=== PATIENT | female | born 1980 | race Caucasian/White ===

== ENCOUNTER 2021-09-24 00:37 | Emergency (ER) | payer OTHER, SELFPAY ==
[2021-09-24 00:42] VITALS: BP 124/87; PULSE 89; RESP 18; TEMP 36.7; O2SAT 98
--- NOTE | 2021-09-24 00:45 | DI.CT_ITS ---
Exam(s) CT HEAD CERV SPINE FACIAL WO EXAM: CT HEAD CERV SPINE FACIAL WO CLINICAL HISTORY: hit head on rock, pain in head, left cheek. etoh+. TECHNIQUE: Imaging Protocol: Axial computed tomography images with coronal and sagittal reformatted images were created and reviewed COMPARISON: No exams were available for comparison FINDINGS: CT BRAIN: There are no skull fractures nor fluid in the visualized paranasal sinuses. There is no evidence of intracranial hemorrhage, mass effect, or shift of midline structures. There are no extra-axial fluid collections. The ventricles are not enlarged or shifted and there is no blo od within the ventricular system nor within the basal cisterns. CT MAXILLOFACIAL BONES: There is no evidence of facial fractures nor fluid in the visualized paranasal sinuses. there is no evidence of orbital blowout fracture. CT CERVICAL SPINE: There is no evidence of fracture nor listhesis. No significant prevertebral soft tissue swelling. N o facet malalignment evident. No significant osseous lesions evident. Chronic-type disc space narrowing at C5-6 level noted. Bilateral small Luschka joint osteophytes at this level noted. There is abnormal straightening of the cervical curvature IMPRESSION: No acute intracranial findings on this noninfused CT scan of the brain. No evidence of facial nor orbital blowout fractures. No evidence of cervical spine fracture, malalignment, nor acute compromise of the cervical spinal can al. RADIATION DOSE DELIVERED: 1,910.13mGy.cm Total DLP DATA REPOSITORY: All CT scans at this facility are submitted to the National Radiology Data Registry (NRDR) Dose Index Registry (DIR) with the [employer] (ACR). RADIATION OPTIMIZATION: All CT scans at this facility use at least one of these dose optimization te chniques: automated exposure control; mA and/or kV adjustment per patient size (includes targeted exa ms where dose is matched to clinical indication); or iterative reconstruction.
--- NOTE | 2021-09-24 00:51 | ED.GENADUL_ITS ---
Discharge Plan Disposition Patient Disposition: HOME Condition: Stable Discharge Details Clinical Impression: Face lacerations, Blunt head trauma ED Provider: Barrett Garrido Home Meds and New Rx's Prescriptions: Continued cyclobenzaprine 10 mg tablet 1 tab PO 1XD Label Comments: TAKE 1 TABLET BY MOUTH 3 (THREE) TIMES A DAY IF NEEDED FOR MUSCLE SPASMS FOR UP TO 3 DAYS. lamotrigine 150 mg tablet 1 tab PO 1XD Label Comments: TAKE 2 TABLETS BY MOUTH AT BEDTIME ibuprofen 800 mg tablet 1 tab PO 1XD Label Comments: TAKE 1 TABLET (800 MG) BY ORAL ROUTE 3 TIMES PER NEEDED FOR PAIN dextroamphetamine-amphetamine 10 mg tablet 1 tab PO 1XD Label Comments: TAKE ONE TAB AT 3PM ORALLY hydroxyzine HCl 50 mg tablet 1 tab PO 1XD Label Comments: TAKE 2 TABLETS (100 MG) BY MOUTH AT BEDTIME doxycycline monohydrate 100 mg capsule 1 cap PO 1XD Label Comments: TAKE 1 CAPSULE ORALLY 2 TIMES A DAY FOR 10DAYS WITH AT LEAST 8OZ OF WATER DON'T LIE DOWN FOR 30 MIN cephalexin 500 mg capsule 1 cap PO 1XD Label Comments: TAKE 1 CAPSULE BY MOUTH FOUR TIMES A DAY FOR 10 DAYS cephalexin 500 mg capsule 1 mg PO 1XD Label Comments: TAKE 1 CAPSULE BY MOUTH FOUR TIMES A DAY FOR 10 DAYS dextroamphetamine-amphetamine [Adderall XR] 30 mg capsule,extended release 24hr 1 cap PO 1XD Label Comments: TAKE 1 CAPSULE BY MOUTH EVERY DAY IN THE MORNING ondansetron 4 mg tablet,disintegrating 1 tab PO 1XD Label Comments: TAKE 1 TABLET BY MOUTH EVERY 8 HOURS IF NEEDED FOR NAUSEA OR VOMITING FOR UP TO 7 DAYS. oxycodone 5 mg tablet 1 tab PO 1XD Label Comments: TAKE 0.5-1 TAB BY MOUTH EVERY 6 HRS PAIN. PATIENT MAY REQUEST A LESSER QUANTITY OR PARTIAL FILL. Rexulti 2 mg tablet 1 tab PO 1XD Label Comments: TAKE 1 TABLET BY MOUTH EVERY DAY Discharge Instructions Instructions: Facial Laceration (ED) Additional Instructions: You should have the sutures removed in approximately 10 days if you develop redness spreading from the wound, yellow/white discharge or severe worsening pain return to the emergency department Medical Decision Making 40 yo female who denies chronic medical problems comes in with forehead lacer ation. She states she was carrying her dog down stairs and tripped and landed hitting her head on a rock. Denies loc and denies preceding symptoms such as chest pain, dyspnea, lightheadeness. She arrives stable, caox4 but does admit to drinking wine and is mildly intoxicated on exam with intermittent slurring of words, no focal deficits on exam. She has a 4cm c shaped laceration superior to the left eyebrow. no scalp hematoma, full rom of the mandible but states she has pain over the left zygomatic arch as well without palpable or visible deformity. No c spine tenderness, chest back or abdomen tenderness and no pain in the extremities. Given she has alcohol on board and her lac, facial pain will obtain ct head and facial bones and given she has etoh on board can't exclude c spine injury, will obtain ct c spine as well. imaging unremarkable, she is stable. Closed the wound with 6 sutures. Discussed that given size of wound will likely have a scar. She lives on [facility] and will see pcp for f/u for suture removal and will consider seeing plastics. Differential Diagnosis Differential Diagnosis: laceration, tbi, facial fracture Imaging Data Radiologic Study: Attestation: I personally reviewed and interpreted this imaging study as follows: Imaging: CT Scan Radiologist's impression: no acute findings head/facial/c spine CT HPI General Mode of arrival: ambulatory . Date/Time Provider Initiated Documentation: 09/24/21 00:38 . Information obtained by: patient . History of Present Illness 40 year old F presents to the emergency department with the chief complaint of hit head on r ock, described as moderate, Quality is described as aching, and is localized to the head. Patient reports no radiation. Patient started experiencing this hour(s) (1) and it has been constant. No relieving factors improve symptom(s), No exacerbating factors reported . Patient notes no other symptoms.. Patient did receive the following treatments prior to arrival, none Related Data Home Medications Medication Instructions Recorded Confirmed brexpiprazole 2 mg tablet (Rexulti) 1 tab PO 1XD 09/24/21 09/24/21 cephalexin 500 mg capsule 1 cap PO 1XD 09/24/21 09/24/21 cephalexin 500 mg capsule 1 mg PO 1XD 09/24/21 09/24/21 cyclobenzaprine 10 mg tablet 1 tab PO 1XD 09/24/21 09/24/21 dextroamphetamine-amphetamine 10 1 tab PO 1XD 09/24/21 09/24/21 mg tablet dextroamphetamine-amphetamine ER 1 cap PO 1XD 09/24/21 09/24/21 30 mg 24hr capsule,extend release (Adderall XR) doxycycline monohydrate 100 mg 1 cap PO 1XD 09/24/21 09/24/21 capsule hydroxyzine HCl 50 mg tablet 1 tab PO 1XD 09/24/21 09/24/21 ibuprofen 800 mg tablet 1 tab PO 1XD 09/24/21 09/24/21 lamotrigine 150 mg tablet 1 tab PO 1XD 09/24/21 09/24/21 ondansetron 4 mg disintegrating 1 tab PO 1XD 09/24/21 09/24/21 tablet oxycodone 5 mg tablet 1 tab PO 1XD 09/24/21 09/24/21 Allergies Allergy/AdvReac Type Severity Reaction Status Date / Time Penicillins Allergy Intermediate Other (See Unverified 09/24/21 00:50 Comment) General Stated Complaint: HeadInjury ENE: 3 Review of Systems All systems reviewed & are unremarkable except as noted in HPI and below Constitutional Constitutional: Denies chills, Denies fever(s) and Denies weakness Eyes Eyes: Denies loss of vision Cardiovascular Cardiovascular: Denies chest pain and Denies dyspnea Respiratory Respiratory: Denies cough and Denies dyspnea Gastrointestinal Gastrointestinal: Denies abdominal pain, Denies nausea and Denies vomiting Integumentary/Breasts Skin/Breast: Denies rash Neurologic Neurologic: Denies loss of vision and Denies weakness PFSH All Active Problems (Updated 09/24/21 @ 02:01 by Barrett Garrido MD) Face lacerations (Acute) Blunt head trauma (Acute) Social History Smoking/Tobacco Use Status: Never Smoking risk assessment performed?: Yes Alcohol Intake: current Alcohol Intake frequency: 0-2 drinks per day Alcohol type: wine Drug use: Never Substance use type: does not use Do you feel safe at home: Yes Exam Const General: no acute distress Orientation: alert HENSC Head: no palpable skull fracture Ears: external ears normal General nose exam: external nose normal Mouth: moist mucous membranes Eyes General: appearance normal, both eyes and all related structures Neck Neck: normal visual inspection Resp Effort & Inspection: normal respiratory effort and able to speak in complete sentences Cardio Rate: regular rate Skin General skin exam: no rashes or lesions noted Neuro General: patient alert and patient oriented x3 Extrem General: normal to inspection Psych Mental Status: mental status grossly normal Course Vital Signs Vital signs: Vital Signs Temperature 36.7 C 09/24/21 00:42 Pulse 89 09/24/21 00:42 Respiratory Rate 18 09/24/21 00:42 Blood Pressure 124/87 09/24/21 00:42 Pulse Oximetry 98 09/24/21 00:42 Temperature 36.7 C 09/24/21 00:42 Temperature Source Tympanic 09/24/21 00:42 Pulse 89 09/24/21 00:42 Respiratory Rate 18 09/24/21 00:42 Respiratory Effort 09/24/21 00:46 Respiratory Depth Normal 09/24/21 00:46 Respiratory Pattern Normal 09/24/21 00:46 Blood Pressure 124/87 09/24/21 00:42 Blood Pressure Position Sitting 09/24/21 00:42 Pulse Oximetry 98 09/24/21 00:42 Oxygen Delivery Method Room Air 09/24/21 00:42 Oxygen Flow Rate 0 09/24/21 00:42 Pain Level 10 09/24/21 00:46 PAWSS Have you Been Recently Intoxicated or Drunk Within the Last 30 days?: Yes Have you Ever Experienced Previous Episodes of Alcohol Withdrawal?: No Have you ever Experienced Withdrawal Seizures?: No Have you ever Experienced Delirium Tremens(DT)s?: No Have you ever undergone Alcohol Rehabilitation Treatment (i.e, inpt ot outpatient treatment programs)?: No Have you ever Experienced Blackouts?: No Have you ever Combined Alcohol with other Downers within the last 90 days?: No Have you ever Combined Alcohol with any other Substance of Abuse during the last 90 days?: No Positive Blood Alcohol level on Presentation? [PCS.BAL]: No Evidence of Increased Autonomic Activity (i.e. HR>120, tremor, sweating, agitati on, nausea)?: No Result: 1
--- NOTE | 2021-09-24 01:27 | DI.VRAD_ITS ---
PROCEDURE INFORMATION: Exam: CT Head Without Contrast Exam date and time: 09/24/2021 1:12 AM Age: 40 years old Clinical indication: Injury or trauma; Fall; Laceration; Consciousness not specified; Without residual foreign body; Forehead; Concussion/head injury; Loss of consciousness not known; Injury date: 09/24/21; Injury details: Hit head on rock, pain in head, left cheek. Etoh+; Additional info: Hit head on rock, pain in head, left cheek. Etoh+ TECHNIQUE: Imaging protocol: Computed tomography of the head without contrast. Radiation optimization: All CT scans at this facility use at least one of these dose optimization techniques: automated exposure control; mA and/or kV adjustment per patient size (includes targeted exams where dose is matched to clinical indication); or iterative reconstruction. COMPARISON: No relevant prior studies available. FINDINGS: Brain: Normal. No hemorrhage. Unremarkable white matter. No mass effect. Cerebral ventricles: No ventriculomegaly. Paranasal sinuses: Visualized sinuses are unremarkable. No fluid levels. Mastoid air cells: Visualized mastoid air cells are well aerated. Bones/joints: Unremarkable. No acute fracture. Soft tissues: Left supraorbital laceration IMPRESSION: No acute intracranial hemorrhage PROCEDURE INFORMATION: Exam: CT Maxillofacial Without Contrast Exam date and time: 09/24/2021 1:12 AM Age: 40 years old Clinical indication: Injury or trauma; Fall; Laceration; Consciousness not specified; Without residual foreign body; Forehead; Concussion/head injury; Loss of consciousness not known; Injury date: 09/24/21; Injury details: Hit head on rock, pain in head, left cheek. Etoh+; Additional info: Hit head on rock, pain in head, left cheek. Etoh+ TECHNIQUE: Imaging protocol: Computed tomography of the of the face without contrast. Radiation optimization: All CT scans at this facility use at least one of these dose optimization techniques: automated exposure control; mA and/or kV adjustment per patient size (includes targeted exams where dose is matched to clinical indication); or iterative reconstruction. COMPARISON: No relevant prior studies available. FINDINGS: Orbital cavities: Orbits are normal. Globes are unremarkable. Bones/joints: No acute fracture. Paranasal sinuses: Normal. No air-fluid levels. Soft tissues: Left supraorbital scalp laceration IMPRESSION: No acute fracture PROCEDURE INFORMATION: Exam: CT Cervical Spine Without Contrast Exam date and time: 09/24/2021 1:12 AM Age: 40 years old Clinical indication: Injury or trauma; Fall; Laceration; Consciousness not specified; Without residual foreign body; Forehead; Concussion/head injury; Loss of consciousness not known; Injury date: 09/24/21; Injury details: Hit head on rock, pain in head, left cheek. Etoh+; Additional info: Hit head on rock, pain in head, left cheek. Etoh+ TECHNIQUE: Imaging protocol: Computed tomography of the cervical spine without contrast. Radiation optimization: All CT scans at this facility use at least one of these dose optimization techniques: automated exposure control; mA and/or kV adjustment per patient size (includes targeted exams where dose is matched to clinical indication); or iterative reconstruction. COMPARISON: No relevant prior studies available. FINDINGS: Bones/joints: No acute fracture. Loss of cervical lordosis is presumably on a degenerative basis.. Discs/Spinal canal/Neural foramina: No significant disc protrusion. No severe spinal canal stenosis. No significant neural foraminal narrowing. Lungs: Lung apices are clear Soft tissues: Unremarkable. IMPRESSION: No acute cervical fracture Dictated and Authenticated by: Sandor La MD. Ordering:KARINA Hyde MD
[2021-09-24] MEDS: Tetanus & Diphtheria Tox,ADULT 0.5 ML VIAL IM (02:12)
[2021-09-24] MEDS: Lidocaine 1% Multi-Dose W/EPI 1/100,000 50 ML VIAL (02:13)
[2021-09-24 02:14] VITALS: BP 121/71; PULSE 77; RESP 17; O2SAT 99
== END 2021-09-24 02:15 | disposition home or self-care (01) ==
LOC: ER 02:20
PROVIDERS: Emergency Provider Emergency Medicine
DX: S01.81XA Laceration without foreign body of other part of head, initial encounter (principal); F10.129 Alcohol abuse with intoxication, unspecified; Z23 Encounter for immunization; W10.9XXA Fall (on) (from) unspecified stairs and steps, initial encounter; W22.8XXA Striking against or struck by other objects, initial encounter; Y90.9 Presence of alcohol in blood, level not specified; Y93.89 Activity, other specified
CPT/HCPCS: 12013; 90471; 99284; 70450; 70486; 72125; 99282; 99283

== ENCOUNTER 2023-10-13 12:50 | Emergency (ER) | payer OTHER, SELFPAY ==
[2023-10-13] VITALS (18 sets, daily range): BP systolic 102–135; BP diastolic 63–73; PULSE 79–88; RESP 16; TEMP 36.7–36.8; O2SAT 96–99
[2023-10-13] MEDS: fentaNYL 100 MCG/2 ML VIAL 50 MCG IVP (13:00)
--- NOTE | 2023-10-13 13:00 | DI.CT_ITS ---
Exam(s) CT THORACIC LUMBAR SPINE WO CT CHEST/ABD/PEL W EXAM: CT CHEST/ABD/PEL W CLINICAL HISTORY: Trauma to back and head. TECHNIQUE: Imaging Protocol: Axial computed tomography images with coronal and sagittal reformatted images were created and reviewed. Axial, sagittal and coronal reconstructed images of the thoracic and lumbar spine were performed from the chest abdomen pelvic CT in bone and soft tissue algorithm. CONTRAST MATERIAL: Intravenous: Omnipaque 350 Contrast volume:100 ml Oral: no COMPARISON: CT CT THORACIC LUMBAR SPINE WO from 10/13/2023 FINDINGS: CHEST: Exam mildly limited by artifact from patient's arms and metallic bracelet surround the left wrist. Tracheobronchial tree: Patent. Pulmonary parenchyma: No consolidation or dominant measurable mass. Pleura: No effusion or pneumothorax. Mediastinum: Within normal limits. Aorta: Thoracic portion non-dilated. Pulmonary arteries: No visible emboli. Heart: Normal size. No pericardial effusion. Bones/thoracic spine: Fixation plate in right clavicle. Unremarkable for age. No lytic or blastic lesions.No compression fractures. Minimal scoliosis versus positioning. Soft tissues: Unremarkable. ABDOMEN and PELVIS: Liver: Enlarged. Severe hepatic steatosis. No measurable mass. Gallbladder and biliary tract: No evidence of stones or wall thickening. No biliary dilatation. Pancreas: Normal density, no abnormal calcifications or inflammatory process. Spleen: Normal. Kidneys: Normal size, contour and axis. No radiodense stones. No obstructive uropathy. No suspicious masses seen. Adrenal glands: No masses seen. Aorta: Abdominal portion non-dilated. Lymph nodes: Within normal limits. Soft tissues: Some edema in the fat of the right gluteal region Bladder: Air bubble in bladder. Correlate with history of catheterization. Bladder otherwise unrema rkable. Bowel: No obstruction or bowel wall thickening. Peritoneal cavity: No ascites. No focal collection. No mesenteric inflammatory response. No free ai r. Bones/lumbar spine: No acute fractures. Old right L2 transverse process fracture. Mild scoliosis ve rsus positioning. No significant degenerative changes. Disc spaces are maintained. No gross eviden ce of disc herniation. Reproductive organs: Uterus and ovaries appeared normal. There is material in the vagina, presumably a tampon. IMPRESSION: No acute abnormality in the chest, abdomen or pelvis other than bruising in the right gluteal region. RADIATION DOSE DELIVERED: Total DLP DATA REPOSITORY: All CT scans at this facility are submitted to the National Radiology Data Registry (NRDR) Dose Index Registry (DIR) with the [employer] (ACR). RADIATION OPTIMIZATION: All CT scans at this facility use at least one of these dose optimization te chniques: automated exposure control; mA and/or kV adjustment per patient size (includes targeted exa ms where dose is matched to clinical indication); or iterative reconstruction.
[2023-10-13] MEDS: Omnipaque 350 MG/ML 100 ML BTL IJ (13:10)
[2023-10-13 13:11] LABS: Abs Immature Grans 0.07 10^3/uL (0.0-0.06); Absolute Basophil Count 0.07 10^3/uL (0.0-0.2); Absolute Eosinophil Count 0.11 10^3/uL (0.0-0.7); Absolute Lymphocyte Count 1.05 10^3/uL (1.2-3.4); Absolute Monocyte Count 0.57 10^3/uL (0.1-0.8); Absolute Neutrophil Count 7.99 10^3/uL (1.2-6.7); Basophils % 0.7 %; Eosinophils % 1.1 %; HCT 40.6 % (36.0-46.0); HGB 14.1 g/dL (11.2-15.7); Immature Grans % 0.7 %; Lymphocytes % 10.6 %; MCH 33.7 pg (27.0-33.0); MCHC 34.7 % (32.0-36.0); MCV 97 fL (80-95); MPV 9.2 fL (8.0-11.0); Monocytes % 5.8 %; Neutrophils % 81.1 %; Platelet Count 277 10^3/uL (130-400); RBC 4.18 10^6/uL (3.93-5.22); RDW-SD 43.4 fL; WBC 9.86 10^3/uL (4.4-10.8)
[2023-10-13] MEDS: Normal Saline - Diluent 50 ML VIAL IJ (13:11)
--- NOTE | 2023-10-13 13:12 | DI.CT_ITS ---
Exam(s) CT HEAD CERVICAL SPINE WO EXAM: CT HEAD CERVICAL SPINE WO CLINICAL HISTORY: Trauma to back and head. TECHNIQUE: Imaging Protocol: Axial computed tomography images with coronal and sagittal reformatted images were created and reviewed COMPARISON: CT CT HEAD CERV SPINE FACIAL WO from 09/24/2021 FINDINGS: Head CT Ventricles and Extra axial spaces: Normal in size and morphology for the patient's age. Hemorrhage: None. Cerebral parenchyma: No evidence of mass or acute infarct. Midline shift: None. Brainstem/Cerebellum: Normal. Calvarium: Normal. Visualized Paranasal sinuses/Mastoids: Clear. Soft tissues: Swelling and air in frontal scalp as well as debris, greater in the right frontal regio n. Cervical Spine CT BONES: Vertebral body heights are maintained. Alignment is normal. There is no evidence of acute frac ture. Fixation plate in the right clavicle. Degenerative changes at C5-6. SOFT TISSUES: No paraspinal hematoma. The airway appears intact. No pneumothorax is seen at the lung apices. IMPRESSION: Head CT: Frontal scalp injury. No skull fracture or acute intracranial abnormality. C-spine CT: Mild degenerative changes, no acute abnormality. RADIATION DOSE DELIVERED: Total DLP DATA REPOSITORY: All CT scans at this facility are submitted to the National Radiology Data Registry (NRDR) Dose Index Registry (DIR) with the [employer] (ACR). RADIATION OPTIMIZATION: All CT scans at this facility use at least one of these dose optimization te chniques: automated exposure control; mA and/or kV adjustment per patient size (includes targeted exa ms where dose is matched to clinical indication); or iterative reconstruction.
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
[2023-10-13 13:24] LABS: HCG Qual (Serum) Negative
[2023-10-13 13:31] LABS: Anion Gap 10.9 mmol/L (3-11); BUN 5 mg/dL (7-18); CO2 25.1 mmol/L (21.0-32.0); CREATININE 0.5 mg/dL (0.55-1.02); Calcium 8.6 mg/dL (8.5-10.1); Chloride 100 mmol/L (98-107); ETHANOL BLOOD 261.3 mg/dL (<10); Estimated GFR 120.02 (mL/min/1.73m2); Glucose 96 mg/dL (74-106); Potassium 3.9 mmol/L (3.5-5.1); Sodium 136 mmol/L (136-145); Troponin I < 50 ng/L (< or =60)
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
--- NOTE | 2023-10-13 13:50 | DI.VRAD_ITS ---
PROCEDURE INFORMATION: Exam: CT Chest With Contrast; Diagnostic Exam date and time: 10/13/2023 1:17 PM Age: 42 years old Clinical indication: Pain; Other: Trauma to back and head TECHNIQUE: Imaging protocol: Diagnostic computed tomography of the chest with contrast. Contrast material: OMNIPAQUE; Contrast volume: 100 ml; Contrast route: INTRAVENOUS (IV); COMPARISON: CT THORACIC LUMBAR SPINE WO 10/13/2023 1:17 PM FINDINGS: Lungs: Unremarkable. No consolidation. No masses. Pleural spaces: Unremarkable. No pneumothorax. No pleural effusion. Heart: Unremarkable. No cardiomegaly. No pericardial effusion. Lymph nodes: Unremarkable. No enlarged lymph nodes. Vasculature: Unremarkable. No aortic aneurysm. Bones/joints: Minimal curvature of the thoracic spine convex to the right. Post open reduction internal fixation of the right clavicle. Soft tissues: Unremarkable. IMPRESSION: No posttraumatic changes in the chest. PROCEDURE INFORMATION: Exam: CT Abdomen And Pelvis With Contrast Exam date and time: 10/13/2023 1:17 PM Age: 42 years old Clinical indication: Pain; Other: Trauma to back and head TECHNIQUE: Imaging protocol: Computed tomography of the abdomen and pelvis with contrast. Contrast material: OMNIPAQUE; Contrast volume: 100 ml; Contrast route: INTRAVENOUS (IV); COMPARISON: CT THORACIC LUMBAR SPINE WO 10/13/2023 1:17 PM FINDINGS: Liver: There is severe hepatic steatosis. Gallbladder and biliary ducts: Normal. No calcified stones. No ductal dilation. Pancreas: Normal. No ductal dilation. Spleen: Normal. No splenomegaly. Adrenal glands: Normal. No mass. Kidneys and ureters: Normal. No hydronephrosis. Stomach and bowel: Unremarkable. No obstruction. No mucosal thickening. Appendix: No evidence of appendicitis. Intraperitoneal space: Unremarkable. No free air. No significant fluid collection. Vasculature: Pelvic phleboliths. Lymph nodes: Unremarkable. No enlarged lymph nodes. Urinary bladder: Unremarkable as visualized. Reproductive: Unremarkable as visualized. Bones/joints: Mild curvature of the lumbar spine convex to the left. Soft tissues: Small fat containing umbilical hernia. IMPRESSION: No posttraumatic changes in the abdomen and pelvis. Dictated and Authenticated by: Alex Mina MD. Ordering:JULIANA Robles MD
[2023-10-13] MEDS: Lidocaine/Epinephri/Tetracaine Topical Gel 3 ML TP (13:52)
[2023-10-13] MEDS: HYDROmorphone 2 MG/ML SYR 0.5 MG IVP (13:52)
[2023-10-13] MEDS: ceFAZolin 2 GM/50 ML BAG IVPB (13:56)
[2023-10-13] MEDS: Normal Saline 500 ML IV (13:57)
--- NOTE | 2023-10-13 13:59 | DI.VRAD_ITS ---
PROCEDURE INFORMATION: Exam: CT Thoracic Spine Without Contrast Exam date and time: 10/13/2023 1:17 PM Age: 42 years old Clinical indication: Injury or trauma; Fall; Other: Trauma to back and head TECHNIQUE: Imaging protocol: Computed tomography of the thoracic spine without contrast. COMPARISON: CT CHEST/ABD/PEL W 10/13/2023 1:17 PM FINDINGS: Bones/joints: No acute fracture. Mild curvature of the thoracic spine convex to the right.. No significant disc bulge or herniation. No severe spinal canal stenosis. No significant neural foraminal narrowing. Post right clavicle open reduction internal fixation. Soft tissues: Unremarkable. IMPRESSION: Unremarkable CT Spine. PROCEDURE INFORMATION: Exam: CT Lumbar Spine Without Contrast Exam date and time: 10/13/2023 1:17 PM Age: 42 years old Clinical indication: Injury or trauma; Fall; Other: Trauma to back and head TECHNIQUE: Imaging protocol: Computed tomography of the lumbar spine without contrast. COMPARISON: CT CHEST/ABD/PEL W 10/13/2023 1:17 PM FINDINGS: Bones/joints: No acute fracture. Mild curvature of the lumbar spine convex to the left. No significant disc bulge or herniation. No severe spinal canal stenosis. No significant neural foraminal narrowing. Chronic fracture of the right L1 transverse process. Soft tissues: Unremarkable. IMPRESSION: No acute findings. Dictated and Authenticated by: Alex Mina MD. Ordering:JULIANA Robles MD
[2023-10-13 14:55] LABS: Bilirubin Negative (Negative); Blood Trace-lysed (Negative); Clarity Clear (Clear); Glucose Negative (Negative); Ketones Negative (Negative); Leukocyte Esterase Small (Negative); Nitrite Negative (Negative); Urobilinogen 0.2 mg/dL (Up to 0.2)
[2023-10-13] MEDS: Ketorolac 15 MG/ML VIAL (15:00)
[2023-10-13 15:14] LABS: Bacteria Few HPF (Negative); C & S Indicated? No; Casts Negative LPF (Negative); Crystals Negative HPF (Negative); Epithelial Cells Rare HPF (Negative); Mucus Negative (Negative); RBC 0-2 HPF (0-2)
== END 2023-10-13 15:46 | disposition home or self-care (01) ==
LOC: ER 15:48
PROVIDERS: Emergency Provider Emergency Medicine
DX: S01.81XA Laceration without foreign body of other part of head, initial encounter (principal); M54.50 Low back pain, unspecified; Z23 Encounter for immunization; V19.9XXA Pedal cyclist (driver) (passenger) injured in unspecified traffic accident, initial encounter; Z91.81 History of falling
CPT/HCPCS: 12004; 74177; 80048; 86850; 86900; 86901; 90471; 90715; 96365; 96366; 96375; 99285; 70450; 71260; 72125; 72128; 72131; 80320; 81003; 81015; 84484; 84703; 85025; 99283; J0690; J1170; J1885; J3010; J3490